=== PATIENT | male | born 1960 | race American Indian/Alaskan Native ===

== ENCOUNTER 2021-09-17 06:22 | Day surgery (SDC) | payer BC ==
[~2021-09-17 06:22] MED LIST: LACTATED RINGERS 1,000 ML IV SCH; MIDAZOLAM 2 MG/2 ML INJ IV NR
--- NOTE | 2021-09-17 07:27 | Anesthesia Consultation ---
Anesthesia Consult and Med Hx Date of service: 09/17/21 - Airway Anesthetic Teeth Evaluation: Good ROM Head & Neck: Adequate Mental/Hyoid Distance: Adequate Mallampati Class: Class II Intubation Access Assessment: Probably Good - Pre-Operative Health Status ASA Pre-Surgery Classification: ASA2 Proposed Anesthetic Plan: General - Pulmonary Hx Smoking: No Hx Respiratory Symptoms: No Hx Sleep Apnea: No (ERIC PRE SCREEN HIGH RISK) - Cardiovascular System Hx Hypertension: Yes Hx Heart Attack/AMI: No Hx Percutaneous Transluminal Coronary Angioplasty (PTCA): No - Central Nervous System CVA: No Hx Back Pain: Yes - Endocrine Hx Renal Disease: No Hx Liver Disease: No Hx Insulin Dependent Diabetes: No Hx Non-Insulin Dependent Diabetes: No Hx Thyroid Disease: No - Other Systems Hx Obesity: No - Additional Comments Anesthesia Medical History Comments: No hx anesthetic complications. Reports allergy to ASA (stomach upset) but no issues with other NSAIDs.
--- NOTE | 2021-09-17 07:27 | Anesthesia Day of Surgery ---
Anesthesia Day of Surgery - Day of Surgery Patient Examined: Yes Patient H&P Reviewed: Yes Patient is NPO: Yes
[2021-09-17] MEDS ORDERED: ceFAZolin/Water 2 GM/20 ML 2 GM/20 ML SYRINGE IV ONE (07:29)
[2021-09-17] MEDS ORDERED: GENTAMICIN/NS 80 MG/100 ML 100 ML IV ONE (07:30)
[2021-09-17] MEDS ORDERED: GENTAMICIN/NS 80 MG/100 ML 100 ML IV SCH (07:30)
[2021-09-17] MEDS ORDERED: LIDOCAINE MPF (2%) 20 MG/1 ML VIAL 5 ML ONE (07:49)
[2021-09-17] MEDS ORDERED: fentaNYL 100 MCG/2 ML INJ ONE (07:49)
[2021-09-17] MEDS ORDERED: ONDANSETRON 4 MG/2 ML INJ ONE (07:49)
[2021-09-17] MEDS ORDERED: propofoL 200 MG/20 ML VIAL IV ONE (07:50)
[2021-09-17] MEDS ORDERED: ONDANSETRON 4 MG/2 ML INJ IV PRN (08:00)
[2021-09-17] MEDS ORDERED: HYDROmorphone 1 MG/1 ML INJ IV PRN (08:00)
[2021-09-17] MEDS ORDERED: HYDROcodone/ACETAMINOPHEN 5-325 MG TAB PO PRN (08:00)
[2021-09-17] MEDS ORDERED: WATER FOR IRRIG STERILE 1,500 ML BOTTLE IR ONE (08:29)
[2021-09-17] MEDS ORDERED: WATER FOR IRRIG STERILE 2000 ML IR ONE (08:29)
[2021-09-17] MEDS ORDERED: dexAMETHasone 20 MG/5 ML VIAL ONE (08:40)
--- NOTE | 2021-09-17 08:47 | Short Stay Summary ---
Short Stay Documentation Date of service: 09/17/21 - History H&P: obtained from office - Allergies and Medications Current Medications: Allergies aspirin Adverse Reaction (Intermediate, Verified 09/12/21 10:33) Vomiting UPSETS STOMACH- LOW DOSE OK Home Medications Medication Instructions Recorded Confirmed Last Taken Type amLODIPine [Norvasc] 10 mg PO DAILY 09/12/21 09/12/21 Unknown History Active Medications Hydrocodone Bitart/Acetaminophen (Hydrocodone/Acetaminophen 5-325 Mg Tab) 2 each PO ONCE PRN PRN Reason: Pain, Moderate (4-6) Stop: 09/17/21 17:00 Cefazolin Sodium (Cefazolin/Sterile Water 2 Gm/20 Ml Syringe) 2 gm IV PREOP NR Hydromorphone HCl (Hydromorphone 1 Mg/1 Ml Inj) 0.5 mg IV Q10MIN PRN PRN Reason: Pain , Severe (7-10) Stop: 09/17/21 17:00 Lactated Ringer's (Lactated Ringers) 1,000 mls @ 100 mls/hr IV DIRECT ANAM Stop: 09/17/21 23:59 Last Admin: 09/17/21 07:10 Dose: 100 mls/hr Gentamicin Sulfate/Sodium Chloride (Gentamicin/Ns 80 Mg/100 Ml) 100 mls @ 200 m ls/hr IV ONCE ONE; Protocol Stop: 09/17/21 07:59 Midazolam HCl (Midazolam 2 Mg/2 Ml Inj) 2 mg IV PREOP NR Stop: 09/17/21 23:59 Ondansetron HCl (Ondansetron 4 Mg/2 Ml Inj) 4 mg IV ONCE PRN PRN Reason: Nausea And Vomiting Stop: 09/17/21 17:00 - Brief post op/procedure progress note Date of procedure: 09/17/21 Pre-op diagnosis: bph, elevated psa Post-op diagnosis: same Procedure: cysto, rpg, pus 118, bx Anesthesia: GETA Surgeon: THIAGO CONLEY Pathology: list (prostate cores) Specimen disposition: to lab Condition: stable - Hospital course Hospital course: bactrim & bettieco on chart - Disposition Condition at discharge: Stable Disposition: 01 HOME / SELF CARE / HOMELESS Short Stay Discharge Plan Follow up with: PRIMARY CARE,MD [Primary Care Provider] - 7 Days
[2021-09-17] MEDS ORDERED: ceFAZolin/STERILE WATER 2 GM/20 ML SYRINGE IV NR (09:00)
--- NOTE | 2021-09-17 09:16 | Operative Report ---
DATE OF SURGERY: 09/17/2021 PREOPERATIVE DIAGNOSES: Elevated prostate-specific antigen 14, benign prostatic hypertrophy. POSTOPERATIVE DIAGNOSES: Elevated prostate-specific antigen 14, benign prostatic hypertrophy. PROCEDURES: Cystoscopy, bilateral retrograde pyelograms, transrectal ultrasound (118 grams) and biopsy of prostate. SURGEON: Adi Pereira MD ANESTHESIA: General. ESTIMATED BLOOD LOSS: Minimal. FLUIDS: Crystalloid. COMPLICATIONS: No complications. INDICATIONS: This patient is a 61-year-old gentleman known to our service with BPH, had worsening prostatism and elevated PSA of 14. He presents now for endoscopic evaluation. Risks, benefits, complications were explained. DESCRIPTION OF PROCEDURE: The patient was taken to the operative suite, placed in a supine position. After adequate general anesthesia, was placed in the dorsal lithotomy position, prepped and draped in a sterile fashion. Pancystourethroscopy was performed with a 22-Qatari Storz cystoscope, no urethral abnormalities. Prostate significant bilateral obstruction. Bladder, no tumors or stones. Positive diffuse trabeculation, no tumors or stones could be appreciated. Bilateral retrograde pyelograms were obtained with an 8-Qatari Letcher catheter and 8 mL of contrast, significant J hooking could be appreciated. No obstructions or stones could be appreciated. Next, using a transrectal ultrasound, biplanar measurements revealed 118 gram gland. No significant lesions. A template biopsy was obtained using an ultrasound, 4 cores at the base, mid and apex of the prostate. His bladder was drained. He was extubated. Rectal exam was benign. He was taken to recovery room in stable condition. He will go home on Bactrim and [place]. TID: [id number] RECEIPT: [id number] [facility]
[2021-09-17 09:32] VITALS: BP 148/74
--- NOTE | 2021-09-17 09:58 | Fluoroscopy Report ---
INTRAOPERATIVE FLUOROSCOPY: ABDOMEN AND PELVIS INDICATION / CLINICAL INFORMATION: ELEVATED PSA AND BPH. TECHNIQUE: Intraoperative spot images were obtained during the procedure. FINDINGS: Intraprocedural images from bilateral retropyelograms. Please refer to operative report for further information. Fluoroscopy Time: 13 seconds. Fluoroscopy Images: 4. Signer Name: Evert Myers MD Signed: 09/17/2021 9:54 AM Workstation Name: [email or web address]
--- NOTE | 2021-09-17 10:10 | Post Anesthesia Evaluation ---
- Post Anesthesia Evaluation Patient Participated: Yes Airway Patent: Yes Stable Respiratory Function: Yes Nausea/Vomiting: No Temp > 96.8F: Yes Pain Manageable: Yes Adequeate Hydration: Yes Anesthesia Complications: No
--- NOTE | 2021-09-17 10:21 | Ultrasound Report ---
Transrectal Ultrasound HISTORY: ELEVATED PSA. TECHNIQUE: Grayscale imaging performed. COMPARISON: None FINDINGS: Transrectal ultrasound guidance was provided by radiology during prostate biopsy by urology . Prostate volume measures 119 cc. IMPRESSION: Successful ultrasound-guided prostate biopsy. Signer Name: Fer Villalta Jr, MD Signed: 09/17/2021 10:16 AM Workstation Name: [id number]
== END 2021-09-17 10:00 | disposition home or self-care (01) ==
LOC: OR 06:22
PROVIDERS: ATTEND Urology
DX: R97.20 Elevated prostate specific antigen [PSA] (principal); N40.0 Benign prostatic hyperplasia without lower urinary tract symptoms; I10 Essential (primary) hypertension; Z88.6 Allergy status to analgesic agent; Z79.899 Other long term (current) drug therapy; Z87.440 Personal history of urinary (tract) infections; Z72.89 Other problems related to lifestyle; Z98.890 Other specified postprocedural states
CPT/HCPCS: 52005; 55700; 74420; 76872; 88305; C1758; J0690; J1100; J1580; J2405; J2704; J3010; J3490; J7120; Q9967